=== PATIENT | male | born 1980 | race Caucasian/White ===

== ENCOUNTER 2017-08-17 12:50 | Emergency (ER) | payer OTHER ==
[~2017-08-17] VITALS: Ht 154.9 cm; Wt 68.0 kg
[2017-08-17] MEDS ORDERED: dexamethasone sod phosphate 10mg/ml inj IV STA (13:04)
[2017-08-17] MEDS ORDERED: normal saline 1000ML IV soln IVB ONE (13:05)
[2017-08-17] MEDS ORDERED: epiNEPHrine 1 mg/ml inj SQ PRN (13:05)
[2017-08-17] MEDS ORDERED: diphenhydrAMINE 50 mg/ml inj IV ONE (13:05)
[2017-08-17] MEDS ORDERED: famotidine/PF 10 mg/ml inj IV ONE (13:05)
[2017-08-17] MEDS ORDERED: PRED20TA PO (13:29)
[2017-08-17] MEDS ORDERED: EPIN0.1516 IM (13:29)
[2017-08-17 15:19] VITALS: BP 111/74
== END 2017-08-17 15:21 | disposition home or self-care (01) ==
LOC: ER 12:52
DX: T78.40XA Allergy, unspecified, initial encounter (principal); X58.XXXA Exposure to other specified factors, initial encounter
CPT/HCPCS: 96361; 96372; 96374; 96375; 99284; J0171; J1100; J1200; J3490; J7030